=== PATIENT | male | born 1990 | race Caucasian/White ===

== ENCOUNTER → 2020-05-08 07:51 | Outpatient (CLI) | payer OTHER, MEDICAID, SELFPAY ==
[2020-05-08 08:28] LABS: Add Manual Diff / Slide Review NO; Basophils Absolute Auto 0 /uL (0-100); Eosinophils Absolute Auto 200 /uL (0-450); Eosinophils Percent Auto 5.1 % (2-4); Hematocrit 45.8 % (41-53); Hemoglobin 15.9 g/dL (13.5-17.5); Lymphocytes Absolute Auto 1200 /uL (1100-4500); Lymphocytes Percent Auto 30.3 % (25-40); Mean Corpuscular HGB Conc 34.8 % (30-36); Mean Corpuscular Hemoglobin 31.4 PG (26-34); Mean Corpuscular Volume 90.3 fL (80-100); Monocytes Absolute Auto 400 /uL (0-900); Monocytes Percent Auto 10.8 % (3-14); Neutrophils Absolute Auto 2100 /uL (1500-7000); Neutrophils Percent Auto 52.8 % (50-75); Platelet Count 210 X10^3/uL (150-400); Red Blood Cell Count 5.07 X10^6/uL (4.5-5.9); Red Cell Distribution Width 13.3 % (11.6-14.8)
[2020-05-08 08:30] LABS: Appearance Urine UA CLEAR; Bilirubin Urine UA NEGATIVE (NEGATIVE); Color Urine UA YELLOW; Glucose Urine UA TRACE g/dL (Negative); Ketones Urine UA NEGATIVE (NEGATIVE); Leukocyte Esterase Urine UA NEGATIVE (NEGATIVE); Nitrite Urine UA NEGATIVE (Negative); Occult Blood Urine UA TRACE-LYSED (Negative); Protein Urine UA NEGATIVE (Negative); Specific Gravity Urine UA 1.025 (1.000-1.035); Urobilinogen Urine UA 0.2 E.U./dL (0.2)
[2020-05-08 08:43] LABS: Alanine Aminotransferase 28 IU/L (<50); Albumin 4.3 g/dL (3.5-5.0); Albumin Globulin Ratio 1.4 (1.0-2.8); Alkaline Phosphatase 89 U/L (38-126); Aspartate Aminotransferase 34 IU/L (17-59); BUN Creatinine Ratio 17.3 (6-22); Bilirubin Total 0.7 mg/dL (0.2-1.3); Blood Urea Nitrogen 17 mg/dL (9-20); Calcium 9.3 mg/dL (8.4-10.2); Carbon Dioxide 27 mmol/L (22-32); Chloride 105 mmol/L (98-107); Cholesterol 187 mg/dL (140-199); Estimated Glomerular Filt Rate > 60.0 mL/min (>60); Globulin 3.1 g/dL (1.7-4.1); Glucose 100 mg/dL (70-100); HDL Cholesterol 39 mg/dL (40-60); LDL Cholesterol Calculated 120 mg/dL (<100); Potassium 4.3 mmol/L (3.4-5.1); Sodium 137 mmol/L (137-145); Total Protein 7.4 g/dL (6.3-8.2); Triglycerides 140 mg/dL (35-150)
[2020-05-08 08:51] LABS: HEMOLYSIS 96 (0-50)
[2020-05-08 09:29] LABS: Bacteria Urine Occasional (0-1); Culture Indicated Urine Cult Not Indicated; RBC Urine 0-1/HPF (0-5/HPF); WBC Urine 0-1/HPF (0-5/HPF)
== END ==
PROVIDERS: PCP Family Medicine; Referring Provider Family Medicine; Visit Provider Family Medicine
DX: Z13.220 Encounter for screening for lipoid disorders (principal); Z13.228 Encounter for screening for other metabolic disorders; Z13.29 Encounter for screening for other suspected endocrine disorder; R10.9 Unspecified abdominal pain
CPT/HCPCS: 36415; 80053; 80061; 81001; 84443; 85025

== ENCOUNTER 2020-07-06 20:13 | Emergency (ER) | payer OTHER, MEDICAID, SELFPAY ==
[2020-07-06 20:19] VITALS: BP 135/55; PULSE 94; RESP 20; TEMP 36.9; O2SAT 98
--- NOTE | 2020-07-06 20:21 | ED.NAVMDI ---
HPI - Nausea/Vomiting/Diarrhea General Chief complaint: Nausea/Vomiting/Diarrhea Stated complaint: NOT EATING MUCH THROWING UP STOMACH PAINS Time Seen by Provider: 07/06/20 20:21 Source: patient Mode of arrival: Ambulatory Limitations: no limitations History of Present Illness HPI Narrative: 30-year-old male nonsmoker with history of gastritis presents with his significant other and a chief complaint of nausea and some vomiting over the past few days. 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 He recently started on Carafate and routinely takes Protonix. He has had an EGD as recently as a month or so ago and plans to have another in a few weeks. He has had no fever or chills. He denies any significant pain. He has not dizzy nor weak or lightheaded. MD complaint: nausea and vomiting Onset (ago): week(s) Description of Vomiting: food contents Description of Diarrhea: none Associated Abdominal Pain: No Severity: mild Relieving factors: none Exacerbating factors: eating Related Data Home Medications Medication Instructions Recorded Confirmed hydroxyzine HCl 10 mg tablet 10 mg PO TID PRN 04/03/20 04/03/20 Previous Rx's Medication Instructions Recorded bupropion HCl 150 mg 24 hr tablet, 150 mg PO QAM #30 tab 04/03/20 extended release ondansetron HCl 4 mg tablet 4 mg PO Q6H PRN #20 tab 04/03/20 pantoprazole 40 mg tablet,delayed 40 mg PO DAILY #90 tab 06/23/20 release sucralfate 1 gram tablet 1 g PO BID #90 tab 06/23/20 ondansetron 4 mg PO TID-QID PRN #10 tab 07/06/20 promethazine 25 mg NH Q4-6H PRN #12 ea 07/06/20 Allergies Allergy/AdvReac Type Severity Reaction Status Date / Time aripiprazole [From Abilify] AdvReac Mild woozy, Verified 05/05/20 13:53 tired, and double vision quetiapine [From Seroquel] AdvReac Mild Started Verified 05/05/20 13:53 hearing voices Review of Systems Constitutional Constitutional: Denies chills, Denies fatigue, Denies fever(s), Denies frequent falls, Denies lethargy and Denies weakness Eyes Eyes: Denies change in vision, Denies eye discharge, Denies irritation and Denies loss of vision ENT Ears, Nose, Mouth, and Throat: Denies change in voice, Denies dizziness, Denies neck pain, Denies sore throat and Denies throat swelling Cardiovascular Cardiovascular: Denies chest pain, Denies irregular heart rhythm, Denies lightheadedness, Denies palpitations, Denies dyspnea, Denies dyspnea on exertion and Denies orthopnea Respiratory Respiratory: Denies cough, Denies dyspnea, Denies dyspnea on exertion and Denies wheezing Gastrointestinal Gastrointestinal: Denies abdominal pain, Denies change in bowel habits, Denies diarrhea, Reports nausea and Reports vomiting Musculoskeletal Musculoskeletal: Denies neck pain and Denies numbness Integumentary/Breasts Skin/Breast: Denies pruritus, Denies erythema, Denies rash and Denies wounds Neurologic Neurologic: Denies behavioral changes, Denies confusion, Denies dizziness, Denies frequent falls, Denies loss of vision, Denies numbness and Denies weakness Psychiatric Psychiatric: Denies anxiety, Denies behavioral changes, Denies confusion, Denies depression, Denies homicidal ideation and Denies suicidal ideation Endocrine Endocrine: Denies fatigue, Denies flushing and Denies palpitations Hematologic/Lymphatic Hematologic/Lymphatic: Denies easy bruising Allergic/Immunologic Allergic/Immunologic: Denies urticaria, Denies throat swelling and Denies wheezing Patient History Medical History Anxiety History of bipolar disorder (~2020) Surgical History Anesthesia History of endoscopy Family History Grandfather Mental health problem Lung cancer Grandmother Lung cancer Grandmother Diabetes mellitus Social History Smoking Status: Never smoker second hand exposure: Yes (sometimes ) alcohol intake: current (socially ) substance use type: marijuana Smoking Status: Never smoker Exam Narrative Exam Narrative: GENERAL: [30] year old patient appears stated age. Well-nourished, well-developed patient, in mild distress. HEAD: Atraumatic. Normocephalic. EYES: Pupils equal round and reactive. Extraocular motions intact. No scleral icterus. No injection or drainage. ENT: Nose without bleeding, purulent drainage. Throat without erythema, tonsillar hypertrophy or exudate. Airway patent. NECK: Trachea midline. Non tender CARDIOVASCULAR: Regular rate and rhythm without murmurs, gallops, or rubs. RESPIRATORY: Clear to auscultation. Breath sounds equal bilaterally. No wheezes, rales, or rhonchi. GASTROINTESTINAL: Abdomen soft, non-tender, nondistended. EXTREMITIES: No edema or joint tenderness. BACK: Nontender without deformity or crepitance. No flank tenderness. NEURO: AOx3. SKIN: No rash or erythema of visible areas Initial Vital Signs Initial Vital Signs: Vital Signs Temperature 98.4 F 07/06/20 20:19 Pulse Rate 94 H 07/06/20 20:19 Respiratory Rate 20 07/06/20 20:19 Blood Pressure 135/55 L 07/06/20 20:19 Pulse Oximetry 98 07/06/20 20:19 Course Course Course Narrative: Patient doing well with above-stated therapies. No vomiting here in the department, no pain and reassuring labs. We discussed multiple etiologies including gastritis versus poorly functioning gallbladder versus other. He was given extensive return precautions and understands the importance of follow-up. His questions have been answered to his apparent satisfaction Orders Ordered: Discontinued Medications Ondansetron HCl (Ondansetron 4 Mg/2 Ml Inj) 4 mg IV NOW ONE Stop: 07/06/20 20:18 Last Admin: 07/06/20 20:32 Dose: 4 mg Documented by: LEAH Ondansetron HCl (Ondansetron 4 Mg Odt Prepack) 1 bottle MISC SEEINSTR ONE Stop: 07/06/20 21:39 Last Admin: 07/06/20 21:49 Dose: 1 bottle Documented by: LEAH Vital Signs Vital signs: Vital Signs - 8 hr 07/06/20 20:19 Temperature 98.4 F Pulse Rate 94 H Respiratory Rate 20 Blood Pressure 135/55 L Pulse Oximetry 98 MDM - Nausea/Vomiting/Diarrhea Lab Data Result diagrams: 07/06/20 20:25 07/06/20 20:25 Labs: Lab Results 07/06/20 07/06/20 07/06/20 Range/Units 20:25 20:25 20:25 WBC 5.9 (4.5-11.0) X10^3/uL RBC 5.49 (4.5-5.9) X10^6/uL Hgb 17.1 (13.5-17.5) g/dL Hct 48.9 (41-53) % MCV 89.1 (80-100) fL MCH 31.2 (26-34) PG MCHC 35.0 (30-36) % RDW 13.1 (11.6-14.8) % Plt Count 231 (150-400) X10^3/uL Neut % (Auto) 80.0 H (50-75) % Lymph % (Auto) 11.0 L (25-40) % [place] % (Auto) 7.8 (3-14) % Eos % (Auto) 0.8 L (2-4) % Baso % (Auto) 0.4 (0-2) % Neut # (Auto) 4700 (2780-8941) /uL Lymph # (Auto) 600 L (1026-3001) /uL [place] # (Auto) 500 (0-900) /uL Eos # (Auto) 0 (0-450) /uL Baso # (Auto) 0 (0-100) /uL PT 13.4 H (10.1-12.7) SECONDS INR 1.2 (0.9-1.3) APTT 34 (26.4-36.2) SECONDS Sodium 138 (137-145) mmol/L Potassium 4.1 (3.4-5.1) mmol/L Chloride 102 (98-107) mmol/L Carbon Dioxide 21 L (22-32) mmol/L BUN 18 (9-20) mg/dL Creatinine 0.96 (0.66-1.25) mg/dL Estimated GFR > 60.0 (>60) mL/min BUN/Creatinine Ratio 18.8 (6-22) Glucose 108 H (70-100) mg/dL Calcium 10.4 H (8.4-10.2) mg/dL Total Bilirubin 0.7 (0.2-1.3) mg/dL AST 39 (17-59) IU/L ALT 46 (<50) IU/L Alkaline Phosphatase 124 (38-126) U/L Total Protein 8.4 H (6.3-8.2) g/dL Albumin 5.0 (3.5-5.0) g/dL Globulin 3.4 (1.7-4.1) g/dL Albumin/Globulin Ratio 1.5 (1.0-2.8) Lipase 37 (23-300) U/L Urine RBC (0-5/HPF) Urine WBC (0-5/HPF) Ur Squamous Epith Cells (0-5/HPF) Urine Bacteria (None) Hyaline Casts (None) Urine Mucus (Negative) Ur Culture Indicated? 07/06/20 Range/Units 21:08 WBC (4.5-11.0) X10^3/uL RBC (4.5-5.9) X10^6/uL Hgb (13.5-17.5) g/dL Hct (41-53) % MCV (80-100) fL MCH (26-34) PG MCHC (30-36) % RDW (11.6-14.8) % Plt Count (150-400) X10^3/uL Neut % (Auto) (50-75) % Lymph % (Auto) (25-40) % [place] % (Auto) (3-14) % Eos % (Auto) (2-4) % Baso % (Auto) (0-2) % Neut # (Auto) (7979-5520) /uL Lymph # (Auto) (9379-6029) /uL [place] # (Auto) (0-900) /uL Eos # (Auto) (0-450) /uL Baso # (Auto) (0-100) /uL PT (10.1-12.7) SECONDS INR (0.9-1.3) APTT (26.4-36.2) SECONDS Sodium (137-145) mmol/L Potassium (3.4-5.1) mmol/L Chloride (98-107) mmol/L Carbon Dioxide (22-32) mmol/L BUN (9-20) mg/dL Creatinine (0.66-1.25) mg/dL Estimated GFR (>60) mL/min BUN/Creatinine Ratio (6-22) Glucose (70-100) mg/dL Calcium (8.4-10.2) mg/dL Total Bilirubin (0.2-1.3) mg/dL AST (17-59) IU/L ALT (<50) IU/L Alkaline Phosphatase (38-126) U/L Total Protein (6.3-8.2) g/dL Albumin (3.5-5.0) g/dL Globulin (1.7-4.1) g/dL Albumin/Globulin Ratio (1.0-2.8) Lipase (23-300) U/L Urine RBC None seen (0-5/HPF) Urine WBC None seen (0-5/HPF) Ur Squamous Epith Cells 0-1 /hpf (0-5/HPF) Urine Bacteria Occasional (0-1) (None) Hyaline Casts 0-1/lpf (None) Urine Mucus 3+ H (Negative) Ur Culture Indicated? Cult not indicated Urine Dip Bedside Urine Glucose Negative Bedside Urine Bilirubin - Negative Bedside Urine Ketone +++ 80 Urine Specific [place] 1.030 Bedside Urine Occult Blood - Negative Bedside Urine pH 6.0 Bedside Urine Protein +/- 15 Bedside Urine Urobilinogen - Negative Bedside Urine Nitrite - Negative Bedside Urine Leukocytes - Negative Esterase Discharge Plan Departure Patient Disposition: Home Clinical Impression: Acute vomiting Instructions: DI for Nausea -- Adult, DI for Vomiting -- Adult Activity Restrictions/Additional Instructions: 1. Drink plenty of fluids with frequent small sips. 2. For the next 24 hours a clear liquid diet is advised. After that please employ a B.R.A.T. diet which would include bananas, rice, apples, toast and other mild food items 3. Please take medications as directed. Please consider increasing her pantoprazole to twice daily for the next 7-14 days 4. Please follow-up with your doctor in the next 1-2 days. Call the office for an appointment. 5. Please return to the emergency Department for any worsening or persistent symptoms, such as increasing pain or fever. Prescriptions: New promethazine 25 mg suppository 25 mg NH Q4-6H PRN (Reason: nausea and vomiting) Qty: 12 RF: 0 ondansetron 4 mg tablet,disintegrating 4 mg PO TID-QID PRN (Reason: nausea and vomiting) Qty: 10 RF: 0 No Action hydroxyzine HCl 10 mg tablet 10 mg PO TID PRNRF: 0 bupropion HCl 150 mg tablet extended release 24 hr 150 mg PO QAM Qty: 30 RF: 2 ondansetron HCl [Zofran] 4 mg tablet 4 mg PO Q6H PRN (Reason: nausea and vomiting) Qty: 20 RF: 1 sucralfate [Carafate] 1 gram tablet 1 g PO BID Qty: 90 RF: 1 pantoprazole 40 mg tablet,delayed release (DR/EC) 40 mg PO DAILY Qty: 90 RF: 1 Referrals: Oliver Schaefer DO [Primary Care Provider] -
[2020-07-06] MEDS: ONDANSETRON 4 MG/2 ML INJ IV (20:32)
[2020-07-06 20:36] LABS: Add Manual Diff / Slide Review NO; Basophils Absolute Auto 0 /uL (0-100); Basophils Percent Auto 0.4 % (0-2); Eosinophils Absolute Auto 0 /uL (0-450); Eosinophils Percent Auto 0.8 % (2-4); Hematocrit 48.9 % (41-53); Hemoglobin 17.1 g/dL (13.5-17.5); Lymphocytes Absolute Auto 600 /uL (1100-4500); Mean Corpuscular Hemoglobin 31.2 PG (26-34); Mean Corpuscular Volume 89.1 fL (80-100); Monocytes Absolute Auto 500 /uL (0-900); Monocytes Percent Auto 7.8 % (3-14); Neutrophils Absolute Auto 4700 /uL (1500-7000); Platelet Count 231 X10^3/uL (150-400); Red Blood Cell Count 5.49 X10^6/uL (4.5-5.9); Red Cell Distribution Width 13.1 % (11.6-14.8); White Blood Cell Count 5.9 X10^3/uL (4.5-11.0)
[2020-07-06 20:44] LABS: INR 1.2 (0.9-1.3); Prothrombin Time 13.4 SECONDS (10.1-12.7)
[2020-07-06 20:47] LABS: PTT Partial Thromboplastin Tim 34 SECONDS (26.4-36.2)
[2020-07-06 20:52] LABS: Alanine Aminotransferase 46 IU/L (<50); Albumin Globulin Ratio 1.5 (1.0-2.8); Alkaline Phosphatase 124 U/L (38-126); Aspartate Aminotransferase 39 IU/L (17-59); BUN Creatinine Ratio 18.8 (6-22); Bilirubin Total 0.7 mg/dL (0.2-1.3); Blood Urea Nitrogen 18 mg/dL (9-20); Calcium 10.4 mg/dL (8.4-10.2); Carbon Dioxide 21 mmol/L (22-32); Chloride 102 mmol/L (98-107); Estimated Glomerular Filt Rate > 60.0 mL/min (>60); Globulin 3.4 g/dL (1.7-4.1); Glucose 108 mg/dL (70-100); HEMOLYSIS 15 (0-50); Lipase 37 U/L (23-300); Potassium 4.1 mmol/L (3.4-5.1); Sodium 138 mmol/L (137-145); Total Protein 8.4 g/dL (6.3-8.2)
[2020-07-06 21:27] LABS: RBC Urine None Seen (0-5/HPF); WBC Urine None Seen (0-5/HPF)
[2020-07-06 21:40] LABS: Hyaline Casts Urine 0-1/LPF; Mucus Urine 3+ (Negative); Squamous Epithelial Cell Urine 0-1 /HPF (0-5/HPF)
[2020-07-06 21:41] LABS: Bacteria Urine Occasional (0-1); Culture Indicated Urine Cult Not Indicated
[2020-07-06] MEDS: ONDANSETRON 4 MG ODT PREPACK 1 BOTTLE MISC (21:49)
[2020-07-06 22:05] VITALS: BP 128/73; PULSE 86; RESP 16; O2SAT 97
== END 2020-07-06 22:05 | disposition home or self-care (01) ==
PROVIDERS: Emergency Provider Emergency Medicine; PCP Family Medicine
DX: R11.2 Nausea with vomiting, unspecified (principal)
CPT/HCPCS: 36415; 80053; 81003; 81015; 83690; 85025; 85610; 85730; 96374; 99284; J2405

== ENCOUNTER → 2020-07-24 12:53 | Outpatient (CLI) | payer OTHER, MEDICAID, SELFPAY ==
--- NOTE | 2020-07-24 12:54 | DI.CT.S_ITS ---
PROCEDURE: CT ABDOMEN PELVIS W CON INDICATIONS: chronic nausea and intermittent abdominal pain TECHNIQUE: After the administration of oral and intravenous contrast, 5 mm thick sections acquired from the diaphragms to the symphysis. 5 mm thick coronal and sagittal reformats were performed. For radiation dose reduction, the following was used: automated exposure control, adjustment of mA and/or kV according to patient size. COMPARISON: [facility], CT, ABDOMEN W CONTRAST, 04/14/2014, 15:08. FINDINGS: Image quality: Excellent. ABDOMEN: Lung bases: Lung bases are clear. Heart size is normal. Solid organs: Laterally within segment 6 of the inferior right hepatic lobe, there is a peripheral hypodensity measuring up to approximately 0.9 cm with indistinct margins. This appears to correspond to a hypervascular enhancing focus on the prior CT. The gallbladder appears within normal limits without calcified gallstones. Biliary system is non-dilated. Pancreas enhances normally. No peripancreatic fat stranding or fluid collections. No pancreatic duct dilatation. The spleen is normal in size. No adrenal nodules. Kidneys demonstrate no hydronephrosis. Peritoneum and bowel: Stomach and small bowel loops are normal in caliber and wall thickness. The appendix is normal in appearance. There is colonic diverticulosis without acute diverticulitis. There is mild segmental bowel wall thickening in the rectum. No free fluid or air. Nodes and vessels: No retroperitoneal or mesenteric adenopathy. Aorta and inferior vena cava are normal in caliber. Miscellaneous: No ventral hernias. PELVIS: Genitourinary: Bladder wall thickness is normal. Miscellaneous: No inguinal hernias or adenopathy. Bones: No suspicious bony lesions. No vertebral body compression fractures. IMPRESSION: 1. Mild segmental bowel wall thickening in the rectum suggestive of a mild proctocolitis. 2. Small nonspecific hypodensity in the right hepatic lobe. This appears to correspond to a small hypervascular focus on the prior study with the difference likely due to differences in phase of contrast enhancement. The finding is incompletely characterized on the current study but is suggestive of a hemangioma. 3. Colonic diverticulosis without acute diverticulitis. Dictated by: Jesús Guo M.D. on 07/24/2020 at 14:00 Approved by: Jesús Guo M.D. on 07/24/2020 at 14:22
== END ==
PROVIDERS: PCP Family Medicine; Referring Provider Family Medicine; Visit Provider Family Medicine
DX: K29.70 Gastritis, unspecified, without bleeding (principal); R11.10 Vomiting, unspecified; K57.90 Diverticulosis of intestine, part unspecified, without perforation or abscess without bleeding; F32.9 Major depressive disorder, single episode, unspecified; R10.9 Unspecified abdominal pain
CPT/HCPCS: 74177

== ENCOUNTER → 2022-12-19 16:16 | Outpatient (CLI) | payer OTHER, SELFPAY ==
[2022-12-19 17:02] LABS: Influenza A - CEPHEID Flu A NEGATIVE (NEGATIVE); Influenza B - CEPHEID Flu B NEGATIVE (NEGATIVE); Respiratory Syncytial Virus Negative (Negative)
[2022-12-19 17:03] LABS: COVID-19 CEPHEID 4-PLEX PCR Negative (Negative)
== END ==
PROVIDERS: PCP Family Medicine; Visit Provider Physician Assistant
DX: R05.1 Acute cough (principal)
CPT/HCPCS: 0241U

== ENCOUNTER → 2023-01-09 08:45 | Outpatient (CLI) | payer OTHER, SELFPAY ==
[2023-01-09 10:25] LABS: Add Manual Diff / Slide Review NO; Basophils Absolute Auto 0 /uL (0-100); Eosinophils Absolute Auto 200 /uL (0-450); Eosinophils Percent Auto 4.3 % (2-4); Hematocrit 45.6 % (41-53); Hemoglobin A1C% w Est Avg Glu 5.3 % (4.0-6.0); Lymphocytes Absolute Auto 1300 /uL (1100-4500); Lymphocytes Percent Auto 33.2 % (25-40); Mean Corpuscular HGB Conc 35.2 % (30-36); Mean Corpuscular Hemoglobin 31.3 PG (26-34); Mean Corpuscular Volume 89.2 fL (80-100); Monocytes Absolute Auto 400 /uL (0-900); Monocytes Percent Auto 9.7 % (3-14); Neutrophils Absolute Auto 2100 /uL (1500-7000); Neutrophils Percent Auto 51.8 % (50-75); Platelet Count 247 X10^3/uL (150-400); Red Blood Cell Count 5.11 X10^6/uL (4.5-5.9); Red Cell Distribution Width 13.2 % (11.6-14.8); White Blood Cell Count 4.1 X10^3/uL (4.5-11.0)
[2023-01-09 10:32] LABS: Alanine Aminotransferase 37 IU/L (<50); Albumin 4.4 g/dL (3.5-5.0); Albumin Globulin Ratio 1.5 (1.0-2.8); Alkaline Phosphatase 102 U/L (38-126); Aspartate Aminotransferase 31 IU/L (17-59); BUN Creatinine Ratio 17.7 (6-22); Bilirubin Total 0.8 mg/dL (0.2-1.3); Blood Urea Nitrogen 14 mg/dL (9-20); Calcium 9.5 mg/dL (8.4-10.2); Carbon Dioxide 21 mmol/L (22-32); Chloride 105 mmol/L (98-107); Cholesterol 192 mg/dL (140-199); Estimated Glomerular Filt Rate > 60 mL/min (>60); Glucose 114 mg/dL (70-100); HDL Cholesterol 35 mg/dL (40-60); HEMOLYSIS 40 (0-50); LDL Cholesterol Calculated 125 mg/dL (<100); Lipase 25 U/L (23-300); Potassium 4.2 mmol/L (3.4-5.1); Sodium 136 mmol/L (137-145); Total Protein 7.4 g/dL (6.3-8.2); Triglycerides 160 mg/dL (35-150)
[2023-01-09 11:03] LABS: TSH w/ Reflex to FT4 1.23 uIU/mL (0.47-4.68)
== END ==
PROVIDERS: PCP Family Medicine; Referring Provider Physician Assistant; Visit Provider Physician Assistant
DX: R11.0 Nausea (principal); F31.9 Bipolar disorder, unspecified; K21.9 Gastro-esophageal reflux disease without esophagitis; K29.70 Gastritis, unspecified, without bleeding; F32.9 Major depressive disorder, single episode, unspecified; Z13.1 Encounter for screening for diabetes mellitus; Z13.220 Encounter for screening for lipoid disorders
CPT/HCPCS: 36415; 80053; 80061; 83036; 83690; 84443; 85025

== ENCOUNTER 2023-04-05 11:13 | Emergency (ER) | payer OTHER, SELFPAY ==
[2023-04-05 11:26] VITALS: BP 140/86; PULSE 89; RESP 14; TEMP 36.6; O2SAT 97; BMI 33.2
[2023-04-05] MEDS: MAG HYDROX/ALUMINUM/SIMETH SUS 20 ML, LIDOCAINE VISCOUS 2% 15 ML PO (11:55)
--- NOTE | 2023-04-05 11:57 | ED_ITS ---
HPI - Nausea/Vomiting/Diarrhea <Teagan Watson PA-C - Last Filed: 04/05/23 14:20> General Chief complaint: Nausea/Vomiting/Diarrhea Stated complaint: chest pains throwing up t-7 Time Seen by Provider: 04/05/23 11:40 Source: patient Mode of arrival: Ambulatory History of Present Illness HPI Narrative: Patient is a 33-year-old male with a history of bipolar disorder, GERD, gastritis and chronic nausea who presents with complaint of chest pain and vomiting. This has been going on for about 1 week. He has had similar symptoms in the past but without as much chest pain. Several years ago he was seen by gastroenterology and had an EGD, was diagnosed with a hiatal hernia and gastritis. His symptoms have been improved over the past several years and he currently takes omeprazole once daily. He denies any changes in his diet or lifestyle over the past week but has been having daily episodes of vomiting, sometimes in the morning and sometimes later in the day, as well as chest pain which is sometimes associated with vomiting and sometimes not associated with vomiting. He also experiences the chest pain when he lies down, especially after eating. The chest pain is also associated with diaphoresis but the pain does not radiate. Patient is unaware of any family history of cardiac disease or early cardiac . He has a nonsmoker, drinks alcohol very rarely, avoids spicy food. He has not tried taking any medications for the symptoms aside from his daily omeprazole and his psychiatric medications. Related Data Home Medications Medication Instructions Recorded Confirmed aripiprazole 10 mg tablet 10 mg PO QPM 04/05/23 04/05/23 Previous Rx's Medication Instructions Recorded bupropion HCl 150 mg 24 hr tablet, 300 mg (2 x 150 mg) PO QAM #120 03/23/23 extended release tabs omeprazole 40 mg capsule,delayed 40 mg PO DAILY #30 caps 04/05/23 release Allergies Allergy/AdvReac Type Severity Reaction Status Date / Time quetiapine [From Seroquel] AdvReac Mild Started Verified 04/05/23 11:30 hearing voices Review of Systems <Teagan Watson PA-C - Last Filed: 04/05/23 14:20> Review of Systems ROS Unobtainable: All systems reviewed & are unremarkable except as noted in HPI and below Patient History <Teagan Watson PA-C - Last Filed: 04/05/23 14:20> Medical History Psoriasis Gastritis History of bipolar disorder (~2019) Anxiety Surgical History Anesthesia History of endoscopy Family History Grandfather Mental health problem Lung cancer Grandmother Lung cancer Grandmother Diabetes mellitus Social History Smoking Status: Never smoker second hand exposure: Yes (sometimes ) alcohol intake: current substance use type: marijuana Smoking Status: Never smoker alcohol intake frequency: 0-2 drinks per day Substance Use Type: marijuana Exam <Teagan Watson PA-C - Last Filed: 04/05/23 14:20> Narrative Exam Narrative: GENERAL: 33 year old patient appears stated age, overweight. Well-developed patient, in no acute distress. NEURO: AOx3. HEAD: Atraumatic. Normocephalic. EYES: Pupils equal round and reactive. Extraocular motions intact. No scleral icterus. No injection or drainage. ENT: Nose without bleeding or purulent drainage. Airway patent. NECK: Trachea midline. Non tender CARDIOVASCULAR: Regular rate and rhythm without murmurs, gallops, or rubs. RESPIRATORY: Clear to auscultation. Breath sounds equal bilaterally. No wheezes, rales, or rhonchi. GASTROINTESTINAL: Abdomen soft, round. No epigastric tenderness to deep palpation. No CVA tenderness. EXTREMITIES: No edema or joint tenderness. SKIN: No rash or erythema of visible areas Initial Vital Signs Initial Vital Signs: Vital Signs Temperature 97.8 F 04/05/23 11:26 Pulse Rate 89 04/05/23 11:26 Respiratory Rate 14 04/05/23 11:26 Blood Pressure 140/86 04/05/23 11:26 Pulse Oximetry 97 04/05/23 11:26 Oxygen Delivery Method Room Air 04/05/23 11:26 <Aydee Mcclure MD - Last Filed: 04/05/23 14:57> Initial Vital Signs Initial Vital Signs: Vital Signs Temperature 97.8 F 04/05/23 11:26 Pulse Rate 89 04/05/23 11:26 Respiratory Rate 14 04/05/23 11:26 Blood Pressure 140/86 04/05/23 11:26 Pulse Oximetry 97 04/05/23 11:26 Oxygen Delivery Method Room Air 04/05/23 11:26 Course <Teagan Watson PA-C - Last Filed: 04/05/23 14:20> Orders Ordered: ED Orders 04/05/23 11:50 EKG-12 Lead Stat 04/05/23 12:00 CBC Auto Diff [Complete Blood Count AUTO DIFF] Stat CHEM7 [Basic Metabolic Panel] Stat Troponin & CK Cardiac Panel Stat Discontinued Medications Al Hydrox/Mg Hydrox/Simethicone 20 ml/ Lidocaine HCl 15 ml 0 ml PO NOW ONE Stop: 04/05/23 11:51 Last Admin: 04/05/23 11:55 Dose: 20 ml Documented By: AMV Vital Signs Vital signs: Vital Signs - 8 hr 04/05/23 11:26 04/05/23 12:55 Temperature 97.8 F Pulse Rate 89 82 Respiratory Rate 14 18 Blood Pressure 140/86 144/88 H Pulse Oximetry 97 96 Oxygen Delivery Method Room Air Room Air <Aydee Mcclure MD - Last Filed: 04/05/23 14:57> Orders Ordered: ED Orders 04/05/23 11:50 EKG-12 Lead Stat 04/05/23 12:00 CBC Auto Diff [Complete Blood Count AUTO DIFF] Stat CHEM7 [Basic Metabolic Panel] Stat Troponin & CK Cardiac Panel Stat Discontinued Medications Al Hydrox/Mg Hydrox/Simethicone 20 ml/ Lidocaine HCl 15 ml 0 ml PO NOW ONE Stop: 04/05/23 11:51 Last Admin: 04/05/23 11:55 Dose: 20 ml Documented By: AMV Vital Signs Vital signs: Vital Signs - 8 hr 04/05/23 11:26 04/05/23 12:55 Temperature 97.8 F Pulse Rate 89 82 Respiratory Rate 14 18 Blood Pressure 140/86 144/88 H Pulse Oximetry 97 96 Oxygen Delivery Method Room Air Room Air MDM - Nausea/Vomiting/Diarrhea <Teagan Watson PA-C - Last Filed: 04/05/23 14:20> Lab Data 04/05/23 12:00 04/05/23 12:00 Labs: Lab Results 04/05/23 Range/Units 12:00 WBC 2.8 L (4.5-11.0) X10^3/uL RBC 5.12 (4.5-5.9) X10^6/uL Hgb 15.7 (13.5-17.5) g/dL Hct 45.2 (41-53) % MCV 88.3 (80-100) fL MCH 30.7 (26-34) PG MCHC 34.8 (30-36) % RDW 13.2 (11.6-14.8) % Plt Count 208 (150-400) X10^3/uL Neut % (Auto) 53.5 (50-75) % Lymph % (Auto) 28.8 (25-40) % Cecil % (Auto) 15.5 H (3-14) % Eos % (Auto) 1.3 L (2-4) % Baso % (Auto) 0.9 (0-2) % Neut # (Auto) 1500 (1312-2832) /uL Lymph # (Auto) 800 L (5931-9534) /uL Cecil # (Auto) 400 (0-900) /uL Eos # (Auto) 0 (0-450) /uL Baso # (Auto) 0 (0-100) /uL Sodium 135 L (137-145) mmol/L Potassium 4.2 (3.4-5.1) mmol/L Chloride 103 (98-107) mmol/L Carbon Dioxide 25 (22-32) mmol/L BUN 13 (9-20) mg/dL Creatinine 0.97 (0.66-1.25) mg/dL Estimated GFR > 60 (>60) mL/min BUN/Creatinine Ratio 13.4 (6-22) Glucose 100 (70-100) mg/dL Calcium 9.5 (8.4-10.2) mg/dL Total Creatine Kinase 66 (55-170) U/L Troponin I < 0.012 (0.01-0.034) ng/mL ECG Data Interpretation: NSR, rate 82, QRS 94, no ST-T changes, reviewed with Dr. Ren DEMARCO Narrative Medical decision making narrative: Multiple etiologies for patient's symptoms considered including, but not limited to: GERD/gastritis, atypical chest pain, ACS,. When patient's extensive history of gastritis and previous management by GI, suspect recurrent gastritis/GERD not adequately managed with current PPI regimen. Patient does describe significant chest pain that has not related to vomiting and that occurs at various times during the day, he is quite worried about this. We will check labs and an EKG today. Gi cocktail given in ER. EKG reassuring, troponin negative. Labs notable for white blood cells; leukopenia is a known side effect of aripiprazole, which patient takes daily. Suggest trending with the primary care. I suspect patient's symptoms are related to gastritis. We will increase dose of omeprazole to 40 mg in the morning empty stomach, reassess in 4-6 weeks. Encouraged patient to make a follow-up appointment with Dr. Estevez to reassess. Reviewed strict return precautions. Encouraged a low-fat, low spice, low acid diet as tolerated. Patient's symptoms improved over duration of stay with above-stated therapies. Findings and discharge diagnosis discussed with patient/family followed by verbalization of understanding Return precautions discussed with patient/family whom verbalize understanding of diagnosis and plan <Aydee Mcclure MD - Last Filed: 04/05/23 14:57> Lab Data Labs: Lab Results 04/05/23 Range/Units 12:00 WBC 2.8 L (4.5-11.0) X10^3/uL RBC 5.12 (4.5-5.9) X10^6/uL Hgb 15.7 (13.5-17.5) g/dL Hct 45.2 (41-53) % MCV 88.3 (80-100) fL MCH 30.7 (26-34) PG MCHC 34.8 (30-36) % RDW 13.2 (11.6-14.8) % Plt Count 208 (150-400) X10^3/uL Neut % (Auto) 53.5 (50-75) % Lymph % (Auto) 28.8 (25-40) % Cecil % (Auto) 15.5 H (3-14) % Eos % (Auto) 1.3 L (2-4) % Baso % (Auto) 0.9 (0-2) % Neut # (Auto) 1500 (2272-9415) /uL Lymph # (Auto) 800 L (9634-5068) /uL Cecil # (Auto) 400 (0-900) /uL Eos # (Auto) 0 (0-450) /uL Baso # (Auto) 0 (0-100) /uL Sodium 135 L (137-145) mmol/L Potassium 4.2 (3.4-5.1) mmol/L Chloride 103 (98-107) mmol/L Carbon Dioxide 25 (22-32) mmol/L BUN 13 (9-20) mg/dL Creatinine 0.97 (0.66-1.25) mg/dL Estimated GFR > 60 (>60) mL/min BUN/Creatinine Ratio 13.4 (6-22) Glucose 100 (70-100) mg/dL Calcium 9.5 (8.4-10.2) mg/dL Total Creatine Kinase 66 (55-170) U/L Troponin I < 0.012 (0.01-0.034) ng/mL Discharge Plan Departure Patient Disposition: Home Clinical Impression: Gastritis Qualifiers: Gastritis type: unspecified gastritis Chronicity: chronic Gastritis bleeding: w ithout bleeding Qualified Code(s): K29.50 - Unspecified chronic gastritis without bleeding Instructions: DI for Gastroesophageal Reflux Disease (GERD) Activity Restrictions/Additional Instructions: *You have been diagnosed with gastritis. I suggest increasing your omeprazole to 40 mg once daily. Please make an appointment to follow up with Dr. Estevez in 4-6 weeks to reassess if this dose is makes an improvement in your symptoms. If you are not feeling better on the higher dose, you should go back to see the respiratory therapy director. If you develop any new, worsening or serious symptoms such as vomiting blood, vomiting so much that you can not keep liquids down, blood in your stool or chest pain that is worse or different, you should come back to the emergency room. *What to do: *Please continue to take your regular medications as directed. [x] New medication prescriptions sent to your pharmacy: [[facility] ] [ ] New medication written as a paper prescription [ ] No new medications given *Please follow up with your primary care provider in 2-3 days, call for an appointment. Let them know you were seen in the Emergency Department and that we ask that you be seen in follow up. We will electronically transmit a record of today's note if your PCP is in our system *If you do not have a primary care provider please contact the [facility] Resource line at [phone]. They will ask some questions about your medical history and help get you set up with a doctor in the community. *Return to Emergency Department if you should have any new, worsening or concerning symptoms, such as [fever greater than 101 F, shaking chills, worsening pain, persistent vomiting or other concerning symptoms]. Prescriptions: New omeprazole 40 mg capsule,delayed release(DR/EC) 40 mg PO DAILY Qty: 30 2RF Continued bupropion HCl 150 mg tablet extended release 24 hr 300 mg PO QAM Qty: 120 5RF aripiprazole 10 mg tablet 10 mg PO QPM Rx Instructions: Take 1 tablet by mouth once daily Discontinued omeprazole 20 mg capsule,delayed release(DR/EC) 20 mg PO QAM Referrals: Montrell Estevez MD [Primary Care Provider] - Stand Alone Forms: Patient Portal/API ED Sign-out <Aydee Mcclure MD - Last Filed: 04/05/23 14:57> Cosign ED Attending Cosmosheature Attestation: I did not see this patient. I was available all times for consultation.
[2023-04-05 12:09] LABS: Add Manual Diff / Slide Review NO; Basophils Absolute Auto 0 /uL (0-100); Basophils Percent Auto 0.9 % (0-2); Eosinophils Absolute Auto 0 /uL (0-450); Eosinophils Percent Auto 1.3 % (2-4); Hematocrit 45.2 % (41-53); Hemoglobin 15.7 g/dL (13.5-17.5); Lymphocytes Absolute Auto 800 /uL (1100-4500); Lymphocytes Percent Auto 28.8 % (25-40); Mean Corpuscular HGB Conc 34.8 % (30-36); Mean Corpuscular Hemoglobin 30.7 PG (26-34); Mean Corpuscular Volume 88.3 fL (80-100); Monocytes Absolute Auto 400 /uL (0-900); Monocytes Percent Auto 15.5 % (3-14); Neutrophils Absolute Auto 1500 /uL (1500-7000); Neutrophils Percent Auto 53.5 % (50-75); Platelet Count 208 X10^3/uL (150-400); Red Blood Cell Count 5.12 X10^6/uL (4.5-5.9); Red Cell Distribution Width 13.2 % (11.6-14.8); White Blood Cell Count 2.8 X10^3/uL (4.5-11.0)
[2023-04-05 12:23] LABS: BUN Creatinine Ratio 13.4 (6-22); Blood Urea Nitrogen 13 mg/dL (9-20); Calcium 9.5 mg/dL (8.4-10.2); Carbon Dioxide 25 mmol/L (22-32); Chloride 103 mmol/L (98-107); Creatine Kinase 66 U/L (55-170); Estimated Glomerular Filt Rate > 60 mL/min (>60); Glucose 100 mg/dL (70-100); HEMOLYSIS < 15 (0-50); Potassium 4.2 mmol/L (3.4-5.1); Sodium 135 mmol/L (137-145)
[2023-04-05 12:35] LABS: Troponin I < 0.012 ng/mL (0.01-0.034)
[2023-04-05 12:55] VITALS: BP 144/88; PULSE 82; RESP 18; O2SAT 96
== END 2023-04-05 12:55 | disposition home or self-care (01) ==
PROVIDERS: Emergency Provider Physician Assistant; PCP Family Medicine
DX: K29.50 Unspecified chronic gastritis without bleeding (principal); R07.9 Chest pain, unspecified
CPT/HCPCS: 36415; 80048; 82550; 84484; 85025; 93005; 93010; 99283; 99284

== ENCOUNTER → 2024-05-30 10:02 | Outpatient (CLI) | payer OTHER, SELFPAY ==
[2024-05-30 10:21] LABS: Add Manual Diff / Slide Review NO; Basophils Absolute Auto 0 /uL (0-100); Basophils Percent Auto 0.9 % (0-2); Eosinophils Absolute Auto 100 /uL (0-450); Eosinophils Percent Auto 3.1 % (2-4); Hematocrit 47.7 % (41-53); Hemoglobin 16.9 g/dL (13.5-17.5); Lymphocytes Absolute Auto 1500 /uL (1100-4500); Lymphocytes Percent Auto 31.5 % (25-40); Mean Corpuscular HGB Conc 35.4 % (30-36); Mean Corpuscular Hemoglobin 31.7 PG (26-34); Mean Corpuscular Volume 89.8 fL (80-100); Monocytes Absolute Auto 500 /uL (0-900); Monocytes Percent Auto 9.8 % (3-14); Neutrophils Absolute Auto 2500 /uL (1500-7000); Neutrophils Percent Auto 54.7 % (50-75); Platelet Count 239 X10^3/uL (150-400); Red Blood Cell Count 5.31 X10^6/uL (4.5-5.9); Red Cell Distribution Width 13.1 % (11.6-14.8); White Blood Cell Count 4.6 X10^3/uL (4.5-11.0)
[2024-05-30 11:05] LABS: Alanine Aminotransferase 42 IU/L (<50); Albumin 4.5 g/dL (3.5-5.0); Albumin Globulin Ratio 1.6 (1.0-2.8); Alkaline Phosphatase 93 U/L (38-126); Aspartate Aminotransferase 31 IU/L (17-59); BUN Creatinine Ratio 13.1 (6-22); Blood Urea Nitrogen 14 mg/dL (9-20); Calcium 9.9 mg/dL (8.4-10.2); Carbon Dioxide 22 mmol/L (22-32); Chloride 104 mmol/L (98-107); Cholesterol 205 mg/dL (140-199); Estimated Glomerular Filt Rate > 60 mL/min (>60); Globulin 2.8 g/dL (1.7-4.1); Glucose 98 mg/dL (70-100); HDL Cholesterol 36 mg/dL (40-60); HEMOLYSIS < 15 (0-50); LDL Cholesterol Calculated 137 mg/dL (<100); Potassium 4.2 mmol/L (3.4-5.1); Sodium 137 mmol/L (137-145); Total Protein 7.3 g/dL (6.3-8.2); Triglycerides 161 mg/dL (35-150)
[2024-05-31 04:12] LABS: Apolipoprotein B 107 mg/dL (<90)
== END ==
PROVIDERS: PCP Family Medicine; Referring Provider Family Medicine; Visit Provider Family Medicine
DX: R11.15 Cyclical vomiting syndrome unrelated to migraine (principal); F31.9 Bipolar disorder, unspecified; K21.9 Gastro-esophageal reflux disease without esophagitis; R11.0 Nausea
CPT/HCPCS: 36415; 80053; 80061; 82172; 85025

== ENCOUNTER → 2025-01-03 10:52 | Outpatient (CLI) | payer OTHER, SELFPAY ==
[2025-01-06 09:38] LABS: QuantiFERON Mitogen Value >10.00 IU/mL (.); QuantiFERON Nil Value 0.25 IU/mL (.); QuantiFERON TB Gold Plus Negative (Negative); QuantiFERON TB1 Ag Value 0.30 IU/mL (.); QuantiFERON TB2 Ag Value 0.25 IU/mL (.)
== END ==
PROVIDERS: PCP Family Medicine; Referring Provider Family Medicine; Visit Provider Family Medicine
DX: Z11.1 Encounter for screening for respiratory tuberculosis (principal)
CPT/HCPCS: 36415; 86480